=== PATIENT | male | born 1965 | race American Indian/Alaskan Native ===

== ENCOUNTER 2016-08-17 14:23 | Outpatient (CLI) | payer OTHER ==
[~2016-08-17 14:23] MED LIST: PROVENTIL IH ONE
--- NOTE | 2016-08-17 17:20 | XRay Report ---
ROUTINE CHEST, TWO VIEWS: HISTORY: Shortness of breath, tuberculosis.. Prominent pulmonary markings and pleural thickening in the right lower lung is again noted and unchanged since 07/30/15. The left lung remains clear. Heart and mediastinal structures are unremarkable. No acute bony abnormality. IMPRESSION: No change since 07/30/15. Chronic changes at the right lung base.
== END 2016-08-17 14:24 | disposition home or self-care (01) ==
LOC: PF 14:23
PROVIDERS: ATTEND Internal Medicine
DX: Z02.71 Encounter for disability determination (principal); A15.9 Respiratory tuberculosis unspecified; R06.02 Shortness of breath; R53.83 Other fatigue; M54.9 Dorsalgia, unspecified; M25.562 Pain in left knee; M25.561 Pain in right knee
CPT/HCPCS: 71020; 94060; 94640